=== PATIENT | female | born 1945 | race Caucasian/White ===

== ENCOUNTER 2018-01-15 16:18 | Emergency (ER) | payer MEDICARE ==
[2018-01-15 17:01] LABS: BASOPHILS % (AUTO) 0.3 %; EOSINOPHILS % (AUTO) 0.3 %; HGB - HEMOGLOBIN 15.1 g/dL (12.0-16.0); LYMPHOCYTES % (AUTO) 10.9 %; MEAN CORPUSCULAR HEMOGLOBIN 29.9 pg (27.0-31.0); MEAN CORPUSCULAR HGB CONC 33.1 g/dL (32.0-36.0); MEAN CORPUSCULAR VOLUME 90.4 fL (81.0-99.0); MEAN PLATELET VOLUME 7.8 fL (7.9-10.8); MONOCYTES # (AUTO) 0.7 10^3/uL (0.0-1.0); MONOCYTES % (AUTO) 7.6 %; NEUTROPHILS # (AUTO) 7.4 10^3/uL (1.5-6.6); NEUTROPHILS % (AUTO) 80.9 %; PLT - PLATELET COUNT 331 10^3/uL (130-450); RED BLOOD COUNT 5.05 10^6/uL (4.20-5.40); RED CELL DISTRIBUTION WIDTH 14.5 % (12.0-15.0); WHITE BLOOD COUNT 9.2 x10^3/uL (4.8-10.8)
[2018-01-15 17:13] LABS: ALBUMIN 3.8 g/dL (3.2-5.5); BILIRUBIN,TOTAL 1.2 mg/dL (0.2-1.0); CALCIUM 9.1 mg/dL (8.5-10.3); CREATININE 0.9 mg/dL (0.4-1.0); TOTAL PROTEIN 7.7 g/dL (6.7-8.2)
[2018-01-15] MEDS ORDERED: ONDANSETRON 4 MG/2 ML VIAL IVP STA (18:24)
[2018-01-15] MEDS ORDERED: SODIUM CHLORIDE 0.9% 1,000 ML IV ONE (18:24)
[2018-01-15 19:40] LABS: BILIRUBIN,URINE NEGATIVE (NEGATIVE); GLUCOSE, URINE (UA) NEGATIVE (NEGATIVE); KETONES,URINE (UA) 15 mg/dL (NEGATIVE); LEUKOCYTE ESTERASE, URINE NEGATIVE (NEGATIVE); NITRITE,URINE NEGATIVE (NEGATIVE); OCCULT BLOOD,URINE TRACE-INTA (NEGATIVE); PROTEIN,URINE NEGATIVE (NEGATIVE); UROBILINOGEN,URINE 0.2 (NORMAL) E.U./dL (NORMAL)
[2018-01-15 19:42] LABS: CLARITY,URINE CLEAR (CLEAR)
--- NOTE | 2018-01-15 20:14 | ED Physician Documentation ---
History of Present Illness - Stated complaint Stated Complaint: N/V - Chief complaint Chief Complaint: Abd Pain - History obtained from History obtained from: Patient - Additonal information Additional information: 72-year-old female presents the emergency department with nausea, vomiting, diarrhea and generalized abdominal cramps which has progressively worsened. The patient reports recent antibiotic usage, camping, drinking of her water or travel. The patient describes the symptoms as mild. The patient denies blood in her vomit or stools. The patient denies any focal abdominal pain. No relieving factors. No other sick contacts Review of Systems Constitutional: denies: Fever, Chills Eyes: denies: Loss of vision Ears: denies: Ear pain Nose: denies: Congestion Cardiac: denies: Chest pain / pressure Respiratory: denies: Dyspnea GI: reports: Abdominal Pain, Nausea, Vomiting, Diarrhea : denies: Dysuria Musculoskeletal: denies: Neck pain Neurologic: denies: Generalized weakness Immunocompromised: denies: Chemotherapy PD PAST MEDICAL HISTORY - Past Medical History Cardiovascular: Hypertension Neuro: Other Musculoskeletal: Osteoarthritis - Past Surgical History Past Surgical History: Yes General: Other 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, Hysterectomy HEENT: Cataracts - Present Medications Home Medications: Ambulatory Orders Medication Instructions Recorded Confirmed Metoprolol Succinate 01/15/18 Ondansetron Odt [Zofran] 4 mg TL Q6H PRN #20 tablet 01/15/18 traZODone [Desyrel] 01/15/18 - Allergies Allergies/Adverse Reactions: Allergies Allergy/AdvReac Type Severity Reaction Status Date / Time morphine Allergy Nausea Verified 01/15/18 16:41 Sulfa (Sulfonamide Allergy Edema Verified 01/15/18 16:40 Antibiotics) - Social History Does the pt smoke?: No Smoking Status: Never smoker Does the pt drink ETOH?: No Does the pt have substance abuse?: No Substance Use and Type: Marijuana PD ED PE NORMAL - General General: Alert and oriented X 3, No acute distress - HEENT HEENT: Atraumatic, PERRL, EOMI, Ears normal - Neck Neck: Supple, no meningeal sign - Cardiac Cardiac: RRR - Respiratory Respiratory: No respiratory distress - Abdomen Abdomen: Normal bowel sounds, Non tender, Non distended - Extremities Extremities: No deformity - Neuro Neuro: Alert and oriented X 3, No motor deficit - Psych Psych: Normal mood Results - Vitals Vitals: Vital Signs - 24 hr 01/15/18 01/15/18 01/15/18 16:38 19:41 20:25 Temperature 36.2 C L 36.1 C L 36.0 C L Heart Rate 126 H 104 H 90 Respiratory 20 16 16 Rate Blood Pressure 138/89 H 149/80 H 136/78 H O2 Saturation 100 100 100 Oxygen O2 Source Room air - EKG (time done) 19: 35 Rate: Rate (enter#) Rhythm: NSR Intervals: Normal UT, LBBB Ischemia: Normal ST segments Other comments: Other comments (No acute ischemic changes) - Labs Labs: Laboratory Tests 01/15/18 01/15/18 01/15/18 16:50 16:50 19:25 WBC 9.2 RBC 5.05 Hgb 15.1 Hct 45.6 MCV 90.4 MCH 29.9 MCHC 33.1 RDW 14.5 Plt Count 331 MPV 7.8 L Neut # (Auto) 7.4 H Lymph # (Auto) 1.0 L [place] # (Auto) 0.7 Eos # (Auto) 0.0 Baso # (Auto) 0.0 Absolute Nucleated RBC 0.00 Nucleated RBC % 0.0 Sodium 136 Potassium 3.5 Chloride 99 L Carbon Dioxide 24 Anion Gap 13.0 BUN 27 H Creatinine 0.9 Estimated GFR (MDRD) 61 L Glucose 158 H Calcium 9.1 Total Bilirubin 1.2 H AST 29 ALT 22 Alkaline Phosphatase 50 Total Protein 7.7 Albumin 3.8 Globulin 3.9 Albumin/Globulin Ratio 1.0 Lipase 24 Urine Color YELLOW Urine Clarity CLEAR Urine pH 6.0 Ur Specific [place] 1.010 Urine Protein NEGATIVE Urine Glucose (UA) NEGATIVE Urine Ketones 15 H Urine Occult Blood TRACE-INTA Urine Nitrite NEGATIVE Urine Bilirubin NEGATIVE Urine Urobilinogen 0.2 (NORMAL) Ur Leukocyte Esterase NEGATIVE Ur Microscopic Review NOT INDICATED Urine Culture Comments NOT INDICATED PD MEDICAL DECISION MAKING - ED course ED course: The patient's symptoms seem to represent a viral process, the patient still has no focal area of abdominal tenderness. On reexamination the patient feels much improved and her workup does not show any significant abnormality. Currently, I do not think the patient requires any further imaging. The patient appears appropriate for discharge home in ongoing outpatient management. I discussed warning signs for a more serious intra-abdominal process and recommended returning to the emergency department immediately for worsening or any concerns. - Sepsis Event Vital Signs: Vital Signs - 24 hr 01/15/18 01/15/18 01/15/18 16:38 19:41 20:25 Temperature 36.2 C L 36.1 C L 36.0 C L Heart Rate 126 H 104 H 90 Respiratory 20 16 16 Rate Blood Pressure 138/89 H 149/80 H 136/78 H O2 Saturation 100 100 100 Oxygen O2 Source Room air Departure - Departure Disposition: 01 Home, Self Care Clinical Impression: Diarrhea Qualifiers: Diarrhea type: unspecified type Qualified Code(s): R19.7 - Diarrhea, unspecified Vomiting Qualifiers: Vomiting type: unspecified Vomiting Intractability: unspecified Nausea presence : unspecified Qualified Code(s): R11.10 - Vomiting, unspecified Abdominal pain Qualifiers: Abdominal location: generalized Qualified Code(s): R10.84 - Generalized abdominal pain Condition: Good Instructions: Abdominal Pain, ED Diarrhea Viral Follow-Up: Dania Rapp MD [Primary Care Provider] - Within 1 week (Please ask your primary care physician to order outpatient fasting blood work to repeat your blood sugar) Prescriptions: Ondansetron Odt [Zofran] 4 mg TL Q6H PRN #20 tablet PRN Reason: Nausea / Vomiting Comments: Please return for worsening symptoms or any concerns Discharge Date/Time: 01/15/18 20:35
[2018-01-15 20:36] VITALS: BP 136/78
== END 2018-01-15 20:35 | disposition home or self-care (01) ==
LOC: ED 16:18
DX: R19.7 Diarrhea, unspecified (principal); R11.10 Vomiting, unspecified; R10.84 Generalized abdominal pain; I10 Essential (primary) hypertension; Z96.649 Presence of unspecified artificial hip joint; I44.7 Left bundle-branch block, unspecified
CPT/HCPCS: 36415; 80053; 81001; 81003; 83690; 85025; 87086; 93005; 96361; 96374; 99283

== ENCOUNTER 2018-01-31 09:48 | Emergency (ER) | payer MEDICARE ==
[2018-01-31 10:00] VITALS: BP 146/84
[2018-01-31] MEDS ORDERED: SODIUM CHLORIDE 0.9% 1,000 ML IV ONE (10:08)
--- NOTE | 2018-01-31 10:13 | ED Physician Documentation ---
PD HPI NVD - Stated complaint Stated Complaint: V/D - Chief complaint Chief Complaint: General - History obtained from History obtained from: Patient - History of Present Illness Timing - onset: How many days ago (4) Timing - details: Waxing and waning Associated symptoms: No: Fever, Abdominal pain Similar symptoms before: No diagnosis Recently seen: Emergency Dept (2 weeks ago.) - Additonal information Additional information: The patient is a 72-year-old female who presents with vomiting and diarrhea that started 4 days ago after eating ice cream. Her vomiting has improved over the past 24 hours, as has the diarrhea. She has had about 4 episodes of loose stool in the past 24 hours. She denies abdominal pain, fever, or dysuria. She is concerned about dehydration. Review of her medical record reveals that she was seen here 2 weeks ago with similar symptoms. CBC, chemistry panel, and urinalysis were normal at that time. That episode also occurred after eating ice cream. She reports a history of similar episode about 40 years ago. Past surgical history is significant for hysterectomy, and surgery for cecal volvulus in 2000. Review of Systems Constitutional: denies: Fever, Fatigue Ears: denies: Tinnitus/ringing Nose: denies: Congestion Throat: denies: Sore throat Cardiac: denies: Chest pain / pressure Respiratory: denies: Dyspnea, Cough GI: reports: Vomiting, Diarrhea. 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 HEENT: Cataracts - Present Medications Home Medications: Ambulatory Orders Medication Instructions Recorded Confirmed Metoprolol Succinate 01/15/18 Ondansetron Odt [Zofran] 4 mg TL Q6H PRN #20 tablet 01/15/18 traZODone [Desyrel] 01/15/18 Potassium Chloride [K-Dur] 20 meq PO DAILY #10 tablet 01/31/18 Promethazine [Phenergan] 25 - 50 mg PO Q6H PRN #10 tab 01/31/18 - Allergies Allergies/Adverse Reactions: Allergies Allergy/AdvReac Type Severity Reaction Status Date / Time morphine Allergy Nausea Verified 01/15/18 16:41 Sulfa (Sulfonamide Allergy Edema Verified 01/15/18 16:40 Antibiotics) latex AdvReac Rash Verified 01/31/18 10:00 - Social History Does the pt smoke?: No Smoking Status: Never smoker Does the pt drink ETOH?: No Does the pt have substance abuse?: No PD ED PE NORMAL - Vitals Vital signs reviewed: Yes (hypertensive and tachycardic) - General General: Alert and oriented X 3, Well developed/nourished - HEENT HEENT: Atraumatic, Moist mucous membranes, Pharynx benign - Neck Neck: Supple, no meningeal sign, No adenopathy, No JVD - Cardiac Cardiac: No murmur, Other (Rapid rate, regular rhythm.) - Respiratory Respiratory: No respiratory distress, Clear bilaterally - Abdomen Abdomen: Soft, Non tender - Back Back: No CVA TTP - Derm Derm: No rash - Extremities Extremities: No edema, No calf tenderness / cord - Neuro Neuro: Alert and oriented X 3, No motor deficit, Normal speech Results - Vitals Vitals: Oxygen O2 Source Room air - Labs Labs: Laboratory Tests 01/31/18 01/31/18 10:13 10:13 WBC 9.2 RBC 4.93 Hgb 14.9 Hct 44.0 MCV 89.2 MCH 30.1 MCHC 33.7 RDW 14.7 Plt Count 398 MPV 7.8 L Neut # (Auto) 4.3 Lymph # (Auto) 3.6 H [place] # (Auto) 1.0 Eos # (Auto) 0.2 Baso # (Auto) 0.0 Absolute Nucleated RBC 0.01 Nucleated RBC % 0.1 Sodium 138 Potassium 2.9 L Chloride 99 L Carbon Dioxide 27 Anion Gap 12.0 BUN 13 Creatinine 1.0 Estimated GFR (MDRD) 54 L Glucose 129 H Calcium 9.4 Total Bilirubin 1.0 AST 22 ALT 16 Alkaline Phosphatase 58 Total Protein 7.6 Albumin 3.7 Globulin 3.9 Albumin/Globulin Ratio 0.9 L Lipase 24 PD MEDICAL DECISION MAKING - ED course Complexity details: reviewed old records, reviewed results, re-evaluated patient , considered differential, d/w patient ED course: The patient's presentation is significant for vomiting and diarrhea, that is likely due to lactose intolerance, given the fact that she has had symptoms repeatedly after eating ice cream. Her symptoms and exam are also suggestive of mild dehydration, and her laboratory evaluation reveals hypokalemia, with a potassium of 2.9. Her presentation does not suggest an acute abdomen, pancreatitis, cholecystitis, or urinary tract infection. Treatment in the emergency department included administration of normal saline 1 L IV, and potassium 20 mEq orally. I discussed with her the diagnosis, outpatient treatment and follow-up, as well as potentially worrisome signs or symptoms that should prompt reevaluation in the emergency department. She is being discharged with prescriptions for Phenergan and for supplemental potassium. - Sepsis Event Vital Signs: Oxygen O2 Source Room air Departure - Departure Disposition: Home, Self Care Clinical Impression: Dehydration, Hypokalemia Diarrhea Qualifiers: Diarrhea type: unspecified type Qualified Code(s): R19.7 - Diarrhea, unspecified Vomiting Qualifiers: Vomiting type: unspecified Vomiting Intractability: non-intractable Nausea presence: with nausea Qualified Code(s): R11.2 - Nausea with vomiting, unspecified Condition: Stable Instructions: ED Vomiting Diarrhea Nonspecific Ad Follow-Up: Dania Rapp MD [Primary Care Provider] - Prescriptions: Potassium Chloride [K-Dur] 20 meq PO DAILY #10 tablet Promethazine [Phenergan] 25 - 50 mg PO Q6H PRN #10 tab PRN Reason: Nausea / Vomiting Comments: Drink plenty of fluids. You can use Phenergan as prescribed if needed for nausea. Take potassium once daily for the next 10 days. Follow up with your primary physician within 2 weeks. Call to schedule appointment. Return to the emergency department if you develop increasing abdominal pain, persistent vomiting, recurrent dehydration, or otherwise worsening Discharge Date/Time: 01/31/18 12:48
[2018-01-31 10:32] LABS: BASOPHILS % (AUTO) 0.4 %; EOSINOPHILS # (AUTO) 0.2 10^3/uL (0.0-0.7); EOSINOPHILS % (AUTO) 1.7 %; HGB - HEMOGLOBIN 14.9 g/dL (12.0-16.0); LYMPHOCYTES # (AUTO) 3.6 10^3/uL (1.5-3.5); LYMPHOCYTES % (AUTO) 39.7 %; MEAN CORPUSCULAR HEMOGLOBIN 30.1 pg (27.0-31.0); MEAN CORPUSCULAR HGB CONC 33.7 g/dL (32.0-36.0); MEAN CORPUSCULAR VOLUME 89.2 fL (81.0-99.0); MEAN PLATELET VOLUME 7.8 fL (7.9-10.8); MONOCYTES % (AUTO) 11.3 %; NEUTROPHILS # (AUTO) 4.3 10^3/uL (1.5-6.6); NEUTROPHILS % (AUTO) 46.9 %; PLT - PLATELET COUNT 398 10^3/uL (130-450); RED BLOOD COUNT 4.93 10^6/uL (4.20-5.40); RED CELL DISTRIBUTION WIDTH 14.7 % (12.0-15.0); WHITE BLOOD COUNT 9.2 x10^3/uL (4.8-10.8)
[2018-01-31 10:33] LABS: ALBUMIN 3.7 g/dL (3.2-5.5); ALBUMIN/GLOBULIN RATIO 0.9 (1.0-2.2); CALCIUM 9.4 mg/dL (8.5-10.3); TOTAL PROTEIN 7.6 g/dL (6.7-8.2)
[2018-01-31] MEDS ORDERED: POTASSIUM CHLORIDE 20 MEQ TABLET PO STA (11:22)
== END 2018-01-31 12:48 | disposition home or self-care (01) ==
LOC: ED 09:48
DX: E86.0 Dehydration (principal); E87.6 Hypokalemia; R19.7 Diarrhea, unspecified; R11.2 Nausea with vomiting, unspecified; I10 Essential (primary) hypertension
CPT/HCPCS: 36415; 80053; 83690; 85025; 96360; 99283; A9270; 81001; 81003; 87086

== ENCOUNTER 2018-02-08 13:28 | Emergency (ER) | payer MEDICARE ==
[2018-02-08 13:37] VITALS: BP 154/77
--- NOTE | 2018-02-08 13:41 | ED Physician Documentation ---
History of Present Illness - Stated complaint Stated Complaint: R ARM PX - Chief complaint Chief Complaint: General - History obtained from History obtained from: Patient - History of Present Illness Timing: Other (She was seen about a week ago for GI illness which has since resolved. She had IV fluids and IV potassium. She notes some pain and swelling near the vein where she had the IV in the right antecubital fossa. 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 HEENT: Cataracts - Present Medications Home Medications: Ambulatory Orders Medication Instructions Recorded Confirmed Metoprolol Succinate 01/15/18 Ondansetron Odt [Zofran] 4 mg TL Q6H PRN #20 tablet 01/15/18 traZODone [Desyrel] 01/15/18 Potassium Chloride [K-Dur] 20 meq PO DAILY #10 tablet 01/31/18 Promethazine [Phenergan] 25 - 50 mg PO Q6H PRN #10 tab 01/31/18 - Allergies Allergies/Adverse Reactions: Allergies Allergy/AdvReac Type Severity Reaction Status Date / Time morphine Allergy Nausea Verified 02/08/18 13:37 Sulfa (Sulfonamide Allergy Edema Verified 02/08/18 13:37 Antibiotics) latex AdvReac Rash Verified 02/08/18 13:37 - Social History Does the pt smoke?: No Smoking Status: Never smoker Does the pt drink ETOH?: No Does the pt have substance abuse?: No - Immunizations Immunizations are current?: Yes PD ED PE NORMAL - Vitals Vital signs reviewed: Yes - General General: Alert and oriented X 3, No acute distress - Extremities Extremities: Other (She has superficial phlebitis of the vein in the right antecubital fossa without evidence of infection. Bedside ultrasound shows no retained foreign body.) - Neuro Neuro: Alert and oriented X 3, Normal speech Results - Vitals Vitals: Vital Signs - 24 hr 02/08/18 13:35 Temperature 36.3 C L Heart Rate 83 Respiratory 20 Rate Blood Pressure 154/77 H O2 Saturation 96 Oxygen O2 Source Room air PD MEDICAL DECISION MAKING - Sepsis Event Vital Signs: Vital Signs - 24 hr 02/08/18 13:35 Temperature 36.3 C L Heart Rate 83 Respiratory 20 Rate Blood Pressure 154/77 H O2 Saturation 96 Oxygen O2 Source Room air Departure - Departure Disposition: 01 Home, Self Care Clinical Impression: Superficial phlebitis Condition: Good Record reviewed to determine appropriate education?: Yes Instructions: ED Phlebitis Superficial Comments: Your blood pressure was elevated today on check into the emergency department. This does not mean that you have hypertension, it is a common phenomenon to come to the emergency department and have elevated blood pressure. I recommend that you see your primary care physician within the week to have it rechecked when you are feeling better. Discharge Date/Time: 02/08/18 13:44
== END 2018-02-08 13:44 | disposition home or self-care (01) ==
LOC: ED 13:28
DX: I80.8 Phlebitis and thrombophlebitis of other sites (principal); I10 Essential (primary) hypertension; Z96.649 Presence of unspecified artificial hip joint
CPT/HCPCS: 99282

== ENCOUNTER 2019-01-22 11:11 | Outpatient (CLI) | payer MEDICARE | END 2019-01-22 11:12 | disposition EMS.NT | LOC: EMS 11:11 | PROVIDERS: ATTEND Surgery | DX: R00.0 Tachycardia, unspecified (principal) ==

== ENCOUNTER 2019-07-20 13:35 | Outpatient (CLI) | payer MEDICARE | END 2019-07-20 13:36 | disposition EMS.NT | LOC: EMS 13:35 | PROVIDERS: ATTEND Surgery | DX: R00.0 Tachycardia, unspecified (principal) ==

== ENCOUNTER 2023-08-05 13:08 | Outpatient (CLI) | payer MEDICARE ==
--- NOTE | 2023-08-05 13:43 | XRAY Report ---
PROCEDURE: Foot 3+V RT INDICATIONS: CRUSHING INJURY TO RIGHT GREAT TOE TECHNIQUE: 3 views of the foot were acquired. COMPARISON: None. FINDINGS: Bones: No fractures or dislocations. No suspicious bony lesions. Soft tissues: No suspicious soft tissue calcifications or masses. IMPRESSION: No acute fracture. No osseous lesion. If symptoms and/or clinical suspicion for patholog y continue, further assessment with repeat plain films, or advanced imaging (e.g., CT, MRI, or bone s can) is recommended for further assessment. Reviewed by: Duran Hercules MD on 08/05/2023 1:42 PM PST Approved by: Duran Hercules MD on 08/05/2023 1:42 PM [facility] Station ID: [id number]
== END 2023-08-05 23:59 | disposition home or self-care (01) ==
LOC: DI.S 13:08
PROVIDERS: ATTEND Physician Assistant Medical
DX: S97.111A Crushing injury of right great toe, initial encounter (principal)

== ENCOUNTER 2023-08-21 08:00 | Outpatient (CLI) | payer MEDICARE | END 2023-08-21 23:59 | disposition home or self-care (01) | LOC: LAB.S 08:00 | PROVIDERS: ATTEND Internal Medicine | DX: L08.9 Local infection of the skin and subcutaneous tissue, unspecified (principal) | CPT/HCPCS: 87070; 87205 ==